=== PATIENT | male | born 1940 | race Caucasian/White ===

== ENCOUNTER 2019-02-12 17:46 | Inpatient (IN) ==
[2019-02-12 18:35] LABS: Basophils % 0.4 %; Eosinophils # 0.1 K/mcL (0.0-0.6); Eosinophils % 1.1 %; Hematocrit 18.8 % (37.5-50.1); Hemoglobin 6.5 g/dL (12.9-16.9); Immature Granulocytes % 1.8 % (0-4); Lymphocytes # 1.3 K/mcL (0.6-4.6); Lymphocytes % 13.2 %; Mean Corpuscular HGB Conc 34.6 g/dL (31.6-35.5); Mean Corpuscular Hemoglobin 36.1 pg (28.0-33.3); Mean Corpuscular Volume 104.4 fL (83.0-100.0); Mean Platelet Volume 10.9 fL (9.4-12.4); Monocytes # 1.1 K/mcL (0.0-1.3); Monocytes % 10.9 %; Neutrophils # 7.1 K/mcL (1.6-8.9); Nucleated Red Blood Cells 0.3 /100 WBC (0); Platelet Count 135 K/mcL (140-400); Red Cell Distribution Width 16.9 % (11.5-14.5); Segmented Neutrophils % 72.6 %; White Blood Count 9.7 K/mcL (4.3-11.1)
[2019-02-12] MEDS ORDERED: Isovue-370 500 ML BOTTLE IVP ONE (18:39)
[2019-02-12] MEDS ORDERED: Pantoprazole 40 MG VIAL IVP ONE (18:41)
[2019-02-12] MEDS ORDERED: CefTRIAXone 1,000 MG VIAL IM ONE (18:41)
[2019-02-12] MEDS ORDERED: cefTRIAXone 1,000 MG in Water for inj. (sterile) 10 ML IVP ONE (18:56)
[2019-02-12 19:20] LABS: BUN/Creatinine Ratio 35 (6-26); Blood Urea Nitrogen 39 mg/dL (8-23); Calcium 8.6 mg/dL (8.6-10.3); Carbon Dioxide 20 mEq/L (23-29); Chloride 103 mEq/L (98-107); Glucose 113 mg/dL (70-105); Osmolality,Calculated 282 (280-300); Potassium 4.9 mEq/L (3.5-5.1); Sodium 131 mEq/L (136-145); eGFR For African Americans > 60 (> 60); eGFR For Non-African Americans > 60 (> 60)
[2019-02-12] MEDS ORDERED: 0.9 % Sodium Chloride 500 ML ONE (20:13)
[2019-02-12] MEDS ORDERED: 0.9 % Sodium Chloride 1,000 ML IVC ONE (21:16)
[2019-02-12 22:06] LABS: Alanine Aminotransferase 30 Units/L (7-52); Albumin 3.2 g/dL (3.5-5.7); Albumin/Globulin Ratio 1.5 (1.1-2.2); Alkaline Phosphatase 51 Units/L (34-104); Aspartate Amino Transferase 27 Units/L (13-39); Bilirubin,Direct 0.1 mg/dL (0.0-0.2); Bilirubin,Indirect 0.5 mg/dL (0.0-1.0); Bilirubin,Total 0.6 mg/dL (0.3-1.0); Globulin 2.1 g/dL (2.4-3.5); Total Protein 5.3 g/dL (6.4-8.9)
[2019-02-12 22:07] LABS: INR 1.1; Prothrombin Time 12.4 Seconds (9.4-12.1)
[2019-02-12] MEDS ORDERED: Furosemide 40 MG TABLET PO PRN (22:15)
[2019-02-12] MEDS ORDERED: Ascorbic Acid 500 MG TABLET PO SCH (22:30)
[2019-02-13] MEDS ORDERED: 0.9 % Sodium Chloride 250 ML ONE ×2 (00:02→09:31)
[2019-02-13] MEDS ORDERED: Furosemide 40 MG TABLET PO PRN (00:26)
[2019-02-13 04:29] LABS: Eosinophils % 0.9 %; Hemoglobin 7.7 g/dL (12.9-16.9); Lymphocytes % 12.5 %; Segmented Neutrophils % 73.4 %
[2019-02-13 04:32] LABS: Basophils % 0.3 %; Eosinophils # 0.1 K/mcL (0.0-0.6); Hematocrit 21.9 % (37.5-50.1); Immature Granulocytes % 1.3 % (0-4); Immature Platelets 2.3 % (1.1-6.1); Mean Corpuscular HGB Conc 35.2 g/dL (31.6-35.5); Mean Corpuscular Hemoglobin 33.6 pg (28.0-33.3); Mean Corpuscular Volume 95.6 fL (83.0-100.0); Mean Platelet Volume 10.9 fL (9.4-12.4); Monocytes # 0.9 K/mcL (0.0-1.3); Monocytes % 11.6 %; Neutrophils # 5.6 K/mcL (1.6-8.9); Red Blood Count 2.29 M/mcL (4.19-5.50); Red Cell Distribution Width 18.9 % (11.5-14.5); White Blood Count 7.6 K/mcL (4.3-11.1)
[2019-02-13 04:50] LABS: BUN/Creatinine Ratio 32 (6-26); Blood Urea Nitrogen 31 mg/dL (8-23); Calcium 7.9 mg/dL (8.6-10.3); Carbon Dioxide 19 mEq/L (23-29); Chloride 105 mEq/L (98-107); Glucose 98 mg/dL (70-105); Osmolality,Calculated 281 (280-300); Potassium 4.8 mEq/L (3.5-5.1); Sodium 132 mEq/L (136-145); eGFR For African Americans > 60 (> 60); eGFR For Non-African Americans > 60 (> 60)
[2019-02-13 05:03] LABS: Platelet Count 76 K/mcL (140-400)
[2019-02-13] MEDS: Pantoprazole 40 MG VIAL IVP SCH ×2 (06:11→18:10)
[2019-02-13] MEDS ORDERED: Octreotide 50 MCG/ML INJ IVP ONE (07:51)
[2019-02-13] MEDS ORDERED: Octreotide 400 MCG in 0.9 % Sodium Chloride 100 ML IVC SCH (08:00)
[2019-02-13] MEDS ORDERED: Valsartan 160 MG TABLET PO SCH (09:00)
[2019-02-13] MEDS ORDERED: Aspirin Enteric Coated 81 MG Tablet PO SCH (09:00)
[2019-02-13] MEDS: (Febuxostat [Uloric] 40 MG) PO SCH (10:22)
[2019-02-13] MEDS ORDERED: *HR* Propofol 200 MG/20 ML VIAL IVP ONE ×2 (12:27→12:35)
[2019-02-13 16:36] LABS: Hematocrit 30.3 % (37.5-50.1)
[2019-02-13] MEDS ORDERED: SODIUM CHLORIDE/NAHCO3/KCL/PEG 4,000 ML SOLN.RECON PO ONE (17:00)
[2019-02-13] MEDS: cefTRIAXone 1,000 MG in Water for inj. (sterile) 10 ML IVP SCH (18:09)
[2019-02-14 04:44] LABS: Mean Platelet Volume 10.4 fL (9.4-12.4); Red Cell Distribution Width 18.6 % (11.5-14.5)
[2019-02-14 04:46] LABS: Hematocrit 26.3 % (37.5-50.1); Hemoglobin 9.2 g/dL (12.9-16.9); Immature Platelets 2.8 % (1.1-6.1); Mean Corpuscular Hemoglobin 33.7 pg (28.0-33.3); Mean Corpuscular Volume 96.3 fL (83.0-100.0); Red Blood Count 2.73 M/mcL (4.19-5.50)
[2019-02-14] MEDS: Pantoprazole 40 MG VIAL IVP SCH (05:03)
[2019-02-14 05:05] LABS: BUN/Creatinine Ratio 19 (6-26); Blood Urea Nitrogen 17 mg/dL (8-23); Calcium 7.8 mg/dL (8.6-10.3); Carbon Dioxide 19 mEq/L (23-29); Chloride 105 mEq/L (98-107); Glucose 109 mg/dL (70-105); Osmolality,Calculated 276 (280-300); Potassium 4.3 mEq/L (3.5-5.1); Sodium 132 mEq/L (136-145); eGFR For African Americans > 60 (> 60); eGFR For Non-African Americans > 60 (> 60)
[2019-02-14] MEDS: cefTRIAXone 1,000 MG in Water for inj. (sterile) 10 ML IVP SCH (07:40)
[2019-02-14] MEDS ORDERED: Propofol 500 MG/50 ML INFUS..BTL ONE (08:13)
[2019-02-14] MEDS: (Febuxostat [Uloric] 40 MG) PO SCH (08:16)
[2019-02-14 08:33] VITALS: BP 136/68
== END 2019-02-14 12:07 | disposition home or self-care (01) | DRG 393 ==
LOC: 2NENU 17:46 → EMEROOARM 17:46 → SUATTDRO 21:34 → 2NENU 22:24
PROVIDERS: ADMIT Internal Medicine; ATTEND Internal Medicine